=== PATIENT | female | born 1955 | race Caucasian/White ===

== ENCOUNTER 2025-05-15 14:46 | Emergency (ER) | payer MEDICARE, OTHER ==
[~2025-05-15] VITALS: Ht 180.3 cm; Wt 113.6 kg
[2025-05-15 14:54] VITALS: TEMP 97.4
--- NOTE | 2025-05-15 14:58 | ELECTROCARDIOGRAPH REPORT ---
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
[2025-05-15 15:11] LABS: MEAN PLATELET VOLUME 9.7 FL (7.4-10.4); RED CELL DISTRIBUTION WIDTH 14.0 % (11.5-14.5)
--- NOTE | 2025-05-15 15:14 | Physician Documentation ---
History of Present Illness ~ Chief Complaint: Rapid Heartbeat Stated Complaint: IRREG EKG Time Seen by MD: 15:42 Primary Medical Doctor: TRELL ALLRED Patient is seen today with complaints of rapid heart beat onset earlier today. Patient was seen by her primary care and had a EKG done that showed tachycardia at about 139 beats per minute. Patient was sent directly here from her primary care office. Patient does admit to some shortness of breath and chest discomfort. Chief Complaint: Rapid heart rate Caveat: None Independent Historians: History of Present Illness: Patient is a 70-year-old woman referred by her [facility] doctor for tachycardia. Patient noted a couple hours prior to arrival that her heart started racing. No chest pain. No dizziness or lightheadedness. Some anxiety feeling. No nausea or vomiting. No difficulty breathing. Patient states that she has had this once before several years ago. Patient was seen by Dr. Covarrubias and had a Holter monitor at that time. She was also referred to a cardio pushcart peddler but this physician apparently did not want to see her. Or did not follow up with her. Review of systems: All systems were reviewed and are negative except for what is indicated in the history of present illness. Past Medical History: Hypertension Past Surgical History: None Social History: Alcohol use, denies tobacco use, denies drug use, Medications: Reviewed as documented Nursing Notes Allergies: Reviewed as documented in Nursing Notes Medication Reconciliation Allergies: Coded Allergies: Penicillins (Unverified Allergy, Unknown, 05/15/25) Review of Systems All Other Systems at this time: Reviewed and Negative ROS Patient denies any other acute symptoms other than above. All other systems are negative Physical Exam Vital Signs: RN Vital Signs have been reviewed: Yes, Temperature: 97.4, Source: Temporal, Heart Rate: 139, Respiratory Rate: 18, BP: 202/129, Pulse Oximetry: 95, Weight: 113.640 Oxygen Flow Rate: 0 Pulse Oximetry Reflects: adequate oxygenation Physical Exam General Appearance: No distress, morbidly obese HEENT: Normal OP, moist oral mucosa, PERRL, EOMI Neck: supple, normal ROM, trachea midline Pulmonary: No respiratory distress, CTA, BS equal Cardiac: RRR, no murmur, rub or gallop, GI: nondistended, soft, nontender, normal bowel sounds, no guarding, no rebound Extremities: normal ROM, no swelling, non-tender Skin: intact, dry, warm, no rashes Neuro: AAOx3, speech is clear, no focal motor weakness Psych: normal affect, good eye contact, no apparent hallucination, normal speech Progress Results/Orders Results/Orders Orders - PRESLEY HARVEY MD Chest,Single View (05/15/25 14:57) Monitor (05/15/25 14:57) Saline Lock (05/15/25 14:57) Oxygen (05/15/25 14:57) Hs Troponin I W Calculations (05/15/25 16:57) Hs Troponin I W Calculations (05/15/25 17:57) Completed Orders - PRESLEY HARVEY MD Chest,Single View (05/15/25 14:57) Cbc/Diff (05/15/25 14:57) PBNP (05/15/25 14:57) Electrocardiogram (05/15/25 14:57) Hs Troponin I W Calculations (05/15/25 14:57) CMP (05/15/25 14:57) Vital Signs 05/15/25 05/15/25 14:54 15:59 Temp 97.4 Pulse 139 90 Resp 18 19 B/P (MAP) 202/129 171/100 (123) Pulse Ox 95 95 O2 Flow Rate 0 0 Laboratory Tests Test 05/15/25 14:52 White Blood Count 8.5 Red Blood Count 4.64 Hemoglobin 16.2 H Hematocrit 47.0 H Mean Corpuscular Volume 101.3 H Mean Corpuscular Hemoglobin 35.0 H Mean Corpuscular Hemoglobin Concent 34.6 Red Cell Distribution Width 14.0 Platelet Count 170 Mean Platelet Volume 9.7 Neutrophils (%) (Auto) 57.9 Lymphocytes (%) (Auto) 26.4 Monocytes (%) (Auto) 7.3 Eosinophils (%) (Auto) 7.5 H Basophils (%) (Auto) 0.9 Neutrophils # (Auto) 4.9 Lymphocytes # (Auto) 2.2 Monocytes # (Auto) 0.6 Eosinophils # (Auto) 0.6 Basophils # (Auto) 0.1 CBC Comment Sodium Level 138 Potassium Level 4.1 Chloride Level 102 Carbon Dioxide Level 26.6 Anion Gap 9 Blood Urea Nitrogen 12 Creatinine 1.08 H Estimated GFR/1.73 m2 50 BUN/Creatinine Ratio 11.1 Glucose Level 143 H Calcium Level 9.7 Total Bilirubin 0.9 Aspartate Amino Transf (AST/SGOT) 44 H Alanine Aminotransferase (ALT/SGPT) 46 Alkaline Phosphatase 101 Troponin I High Sensitivity 5 Pro-B-Type Natriuretic Peptide 85 Total Protein 8.1 Albumin 4.0 Globulin 4.1 Albumin/Globulin Ratio 1.0 L Chemistry Comments Medical Decision Making Findings Differential diagnosis includes but is not limited to: Atrial fibrillation, atrial flutter, multifocal atrial tachycardia, ectopic atrial tachycardia, sinus tachycardia, acute coronary syndrome EKG independent interpretation: Performed at 2:49 p.m.. Ectopic atrial tachycardia, heart rate 139, left axis deviation, low voltage, normal ST segments Repeat EKG: Performed at 4:18 p.m.. Normal sinus rhythm, heart rate 88, nonspecific ST changes, normal axis Chest x-ray, single view, indication: Tachycardia Independent interpretation: Lungs are clear, normal mediastinum, normal cardiac silhouette, normal soft tissues. No acute cardiopulmonary process Laboratory data independent interpretation: CBC: Unremarkable, hemoglobin is elevated at 16.2 CMP: Unremarkable 1st troponin: 5 Emergency department course/medical decision-making: Patient presents with tachycardia. EKGs consistent with ectopic atrial tachycardia. When I saw the patient the patient's tachycardia resolved and she is currently in sinus rhythm. Patient is asymptomatic. Do not suspect acute coronary syndrome. Patient will be referred to Dr. Covarrubias for Holter monitor and further management of her hypertension. Test results, treatment plan and follow up plan as above discussed with the patient and her . No medical or surgical emergency he has been identified. Patient is stable for discharge. Departure Time of Disposition: 16:08 Disposition: 01 HOME / SELF CARE / HOMELESS Impression: Primary Impression: Ectopic atrial tachycardia Condition: Improved Discharge Instructions: Sinus Tachycardia Additional Instructions: YOU DID NOT HAVE SINUS TACHYCARDIA BUT WHAT IS CALLED AN ECTOPIC ATRIAL TACHYCARDIA. FOLLOW UP WITH DR. COVARRUBIAS FOR OUTPATIENT HOLTER MONITOR AND FURTHER MANAGEMENT OF YOUR HIGH BLOOD PRESSURE. TURNED TO THE ER IF YOU HAVE RECURRENT TACHYCARDIA/RAPID HEART RATE IF IT PERSISTS Education Educated: Patient, Family Educated regarding: diagnosis, treatment, need for follow up Signature Scribe Signature: NO SCRIBE Attestation: NO SCRIBE ROMAN OWEN May 15, 2025 15:14 PRESLEY HARVEY MD May 15, 2025 16:10
[2025-05-15 15:21] LABS: CREATININE 1.08 MG/DL (0.40-0.90); TOTAL CARBON DIOXIDE 26.6 MMOL/L (24-32); eCRCL 56 ML/MIN; eGFR 50 ML/MIN
[2025-05-15 15:28] LABS: PRO BRAIN NATRIURETIC PEPTIDE 85 PG/ML (0-125)
--- NOTE | 2025-05-15 15:34 | RADIOLOGY REPORT ---
EXAM: DI CHEST,SINGLE VIEW TECHNIQUE: Single frontal chest radiograph CLINICAL HISTORY: CP COMPARISON: None Findings/Impression: Frontal chest radiograph demonstrates no acute osseous or superficial soft tissue abnormalities. The trachea is midline. The cardiac silhouette and mediastinum are within normal limits. No pneumothorax, pleural effusions, or consolidations.
[2025-05-15 16:26] VITALS: BP 170/110; PULSE 84; RESP 15; O2SAT 97
--- NOTE | 2025-05-16 14:01 | ELECTROCARDIOGRAPH REPORT ---
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
== END 2025-05-15 16:30 | disposition home or self-care (01) ==
LOC: ER 14:47
DX: I49.1 Atrial premature depolarization (principal); I10 Essential (primary) hypertension; F41.9 Anxiety disorder, unspecified; Z88.0 Allergy status to penicillin
CPT/HCPCS: 36415; 71045; 80053; 83880; 84484; 85025; 93005; 99285